=== PATIENT | female | born 2000 | race Caucasian/White ===

== ENCOUNTER → 2023-12-29 | Outpatient (CLI) | payer OTHER ==
[~2023-12-29] MED LIST: CYCL10 PO
== END | disposition home or self-care (01) ==
LOC: LAB 08:30 → LAB SHORT 08:30
PROVIDERS: Physician Assistant
DX: Z01.419 Encounter for gynecological examination (general) (routine) without abnormal findings (principal)
CPT/HCPCS: G0123

== ENCOUNTER 2024-04-05 08:53 | Day surgery (SDC) | payer OTHER ==
[~2024-04-05] VITALS: Ht 177.8 cm; Wt 55.3 kg
[~2024-04-05 08:53] MED LIST changes: +Lactated Ringer's 1,000 ML IV ONE; +propofoL 50 ML IV ONE
[2024-04-05] MEDS ORDERED: Lactated Ringer's 1,000 ML IV ONE ×2 (10:10)
[2024-04-05] MEDS ORDERED: Midazolam HCL 1 MG/ML 5MLVIAL ONE (10:35)
--- NOTE | 2024-04-05 13:09 | NUR ---
04/05/24 1309 Aliyah Villegas UPON WALKING INTO ROOM TO TAKE OVER FOR [employer] OBSERVED PT. CRYING. PT. VERBALIZES HAVING PAIN IN THE MID EPIGASTRIC AREA "BEHIND MY RIBS" PT. STATES. "TRYING TO RIP OPEN MY CHEST. I JUST WANT TO GO HOME, HOSPITALS GIVE ME ANXIETY. I"LL GO TO THE ER IF GETS WORSE." DR. MICHELE IN ROOM TALKING WITH PT. INSTRUCTED PT. TO TRY SOME HONEY WHEN SHE GOT HOME. PT. STATED AGAIN "I JUST WANT TO GO HOME." PT. WAS INSTRUCTED ALSO BY ORSC[employer]NSC THAT IT MAY BE SOME CARBON DIOXIDE IN THERE & BURPING OUT WILL HELP BUT ALSO IT WILL EVENTUALLY ABSORB. PT. THEN C/O NAUSEA, PT. BURPED UP AIR BUT NO EMESIS. PT. STATES "PAIN CAUSES ME NAUSEA ALSO." WHEN PT. WAS TALKED TO ABOUT HER TATTO'S OR FAMILY SHE WOULD STOP CRYING. PT. ALSO C/O PAIN WOULD GET WORSE WHEN SHE RAISED HER HANDS OVER HER HEAD. PT. STATED "I JUST WANT TO GO HOME & GO TO BED." OFFERED PT. TO DRINK SOME WATER, PT. REFUSED. PT. STATED "I DON'T WANT IT TO MAKE IT WORSE." ALSO INSTRUCTED PT. MAYBE TO GO HOME & DRINK SOMETHING WARM. PT. WAS TAKEN OUT BY WC TO MOM. MOM WAS INFORMED THAT BXS WERE TAKEN & WHAT THE HAD SAID.
[2024-04-05 13:11] VITALS: BP 128/92
== END 2024-04-05 12:09 | disposition home or self-care (01) ==
LOC: ORSCSDS 08:53
PROVIDERS: Internal Medicine Gastroenterology
PROC: 0DB98ZX Excision of Duodenum, Via Natural or Artificial Opening Endoscopic, Diagnostic (ICD-10-PCS; principal; 2024-04-05 10:15)
PROC: 0DJD8ZZ Inspection of Lower Intestinal Tract, Via Natural or Artificial Opening Endoscopic (ICD-10-PCS; principal; 2024-04-05 10:15)
PROC: 0DB78ZX Excision of Stomach, Pylorus, Via Natural or Artificial Opening Endoscopic, Diagnostic (ICD-10-PCS; principal; 2024-04-05 10:15)
DX: K21.9 Gastro-esophageal reflux disease without esophagitis (principal); R19.4 Change in bowel habit; R13.10 Dysphagia, unspecified; R63.4 Abnormal weight loss; R10.13 Epigastric pain; R11.2 Nausea with vomiting, unspecified; K29.70 Gastritis, unspecified, without bleeding; F43.10 Post-traumatic stress disorder, unspecified; F41.9 Anxiety disorder, unspecified
CPT/HCPCS: 88305; 88342; J2250; J2704; J7120

== ENCOUNTER 2024-04-30 03:32 | Day surgery (SDC) | payer OTHER ==
[~2024-04-30 03:32] MED LIST changes: -Lactated Ringer's 1,000 ML IV ONE; -propofoL 50 ML IV ONE
[2024-04-30] MEDS ORDERED: NS 1,000 ML IV SCH (06:55)
[2024-04-30] MEDS ORDERED: Ondansetron HCl 2 MG / ML 2ML Vial IV SCH (06:55)
[2024-04-30 10:25] VITALS: BP 99/72
[2024-04-30] MEDS ORDERED: ONDA4 PO (10:58)
[2024-04-30] MEDS ORDERED: FAMO20 PO (10:58)
== END 2024-04-30 11:42 | disposition home or self-care (01) ==
LOC: ATC 03:32
DX: O21.0 Mild hyperemesis gravidarum (principal); Z88.6 Allergy status to analgesic agent; Z91.013 Allergy to seafood; Z91.018 Allergy to other foods; Z91.040 Latex allergy status; Z87.891 Personal history of nicotine dependence
CPT/HCPCS: J2405; J7030

== ENCOUNTER 2024-05-04 01:17 | Day surgery (SDC) | payer OTHER ==
[~2024-05-04 01:17] MED LIST changes: +FAMO20 PO; +ONDA4 PO
[2024-05-04] MEDS ORDERED: NS 1,000 ML IV SCH (07:10)
[2024-05-04] MEDS ORDERED: Ondansetron HCl 2 MG / ML 2ML Vial IV SCH (07:10)
[2024-05-04 13:50] VITALS: BP 119/73
== END 2024-05-04 15:02 | disposition home or self-care (01) ==
LOC: ATC 01:17
DX: O21.0 Mild hyperemesis gravidarum (principal); Z91.040 Latex allergy status; Z88.8 Allergy status to other drugs, medicaments and biological substances; Z3A.01 Less than 8 weeks gestation of pregnancy
CPT/HCPCS: 96361; 96374; J2405; J7030

== ENCOUNTER 2024-05-11 09:14 | Day surgery (SDC) | payer OTHER ==
[~2024-05-11 09:14] MED LIST changes: +NS 1,000 ML IV SCH; +Ondansetron HCl 2 MG / ML 2ML Vial IV SCH
[2024-05-11 10:35] VITALS: BP 107/64
--- NOTE | 2024-05-11 11:58 | NUR ---
PT REQUESTED TO STOP MEDICATION SHE NEEDED TO GO GET HER CHILD FROM DAY[facility]ARE.
== END 2024-05-11 11:51 | disposition home or self-care (01) ==
LOC: ATC 09:14
DX: O21.0 Mild hyperemesis gravidarum (principal); O99.611 Diseases of the digestive system complicating pregnancy, first trimester; Z3A.00 Weeks of gestation of pregnancy not specified; K21.9 Gastro-esophageal reflux disease without esophagitis; Z79.899 Other long term (current) drug therapy; Z87.891 Personal history of nicotine dependence; Z88.6 Allergy status to analgesic agent; Z91.018 Allergy to other foods; Z91.013 Allergy to seafood; Z91.040 Latex allergy status
CPT/HCPCS: 96361; 96374; J2405; J7030

== ENCOUNTER 2024-05-16 03:53 | Day surgery (SDC) | payer OTHER ==
[~2024-05-16 03:53] MED LIST changes: -NS 1,000 ML IV SCH; -Ondansetron HCl 2 MG / ML 2ML Vial IV SCH
[2024-05-16] MEDS ORDERED: NS 1,000 ML IV SCH (06:40)
[2024-05-16] MEDS ORDERED: Ondansetron HCl 2 MG / ML 2ML Vial IV SCH (06:40)
[2024-05-16 09:55] VITALS: BP 112/69
== END 2024-05-16 11:08 | disposition home or self-care (01) ==
LOC: ATC 03:53
DX: O21.0 Mild hyperemesis gravidarum (principal); Z3A.00 Weeks of gestation of pregnancy not specified; O99.619 Diseases of the digestive system complicating pregnancy, unspecified trimester; K21.9 Gastro-esophageal reflux disease without esophagitis; Z88.6 Allergy status to analgesic agent; Z79.899 Other long term (current) drug therapy
CPT/HCPCS: 96361; 96374; J2405; J7030

== ENCOUNTER 2024-05-18 00:32 | Day surgery (SDC) | payer OTHER ==
[2024-05-18] MEDS ORDERED: Ondansetron HCl 2 MG / ML 2ML Vial IV SCH (06:55)
[2024-05-18] MEDS ORDERED: NS 1,000 ML IV SCH (06:55)
[2024-05-18 10:15] VITALS: BP 103/64
== END 2024-05-18 11:18 | disposition home or self-care (01) ==
LOC: ATC 00:32
DX: O21.0 Mild hyperemesis gravidarum (principal); Z3A.00 Weeks of gestation of pregnancy not specified; Z88.5 Allergy status to narcotic agent; Z79.899 Other long term (current) drug therapy
CPT/HCPCS: 96361; 96374; J2405; J7030

== ENCOUNTER 2024-05-21 03:41 | Day surgery (SDC) | payer OTHER ==
[2024-05-21] MEDS ORDERED: Ondansetron HCl 2 MG / ML 2ML Vial IV SCH (06:45)
[2024-05-21] MEDS ORDERED: NS 1,000 ML IV SCH (06:45)
[2024-05-21 15:20] VITALS: BP 103/64
== END 2024-05-21 16:36 | disposition home or self-care (01) ==
LOC: ATC 03:41
DX: O21.0 Mild hyperemesis gravidarum (principal); Z3A.01 Less than 8 weeks gestation of pregnancy; Z88.8 Allergy status to other drugs, medicaments and biological substances; Z91.040 Latex allergy status; Z91.013 Allergy to seafood
CPT/HCPCS: 96361; 96374; J2405; J7030

== ENCOUNTER 2024-05-25 00:53 | Day surgery (SDC) | payer OTHER ==
[2024-05-25] MEDS ORDERED: Ondansetron HCl 2 MG / ML 2ML Vial IV SCH (07:00)
[2024-05-25] MEDS ORDERED: NS 1,000 ML IV SCH (07:00)
[2024-05-25 10:16] VITALS: BP 98/66
== END 2024-05-25 11:23 | disposition home or self-care (01) ==
LOC: ATC 00:53
DX: O21.0 Mild hyperemesis gravidarum (principal); O99.612 Diseases of the digestive system complicating pregnancy, second trimester; K21.9 Gastro-esophageal reflux disease without esophagitis; Z3A.00 Weeks of gestation of pregnancy not specified; Z87.891 Personal history of nicotine dependence; Z88.5 Allergy status to narcotic agent; Z88.6 Allergy status to analgesic agent; Z91.018 Allergy to other foods; Z91.040 Latex allergy status; Z91.013 Allergy to seafood
CPT/HCPCS: 96361; 96374; J2405; J7030

== ENCOUNTER 2024-05-28 03:11 | Day surgery (SDC) | payer OTHER ==
[2024-05-28] MEDS ORDERED: Ondansetron HCl 2 MG / ML 2ML Vial IV SCH (06:45)
[2024-05-28] MEDS ORDERED: NS 1,000 ML IV SCH (06:45)
[2024-05-28 10:16] VITALS: BP 108/66
== END 2024-05-28 11:30 | disposition home or self-care (01) ==
LOC: ATC 03:11
DX: O21.0 Mild hyperemesis gravidarum (principal); Z3A.00 Weeks of gestation of pregnancy not specified; Z88.6 Allergy status to analgesic agent; Z88.8 Allergy status to other drugs, medicaments and biological substances; Z79.899 Other long term (current) drug therapy
CPT/HCPCS: 96361; 96374; J2405; J7030

== ENCOUNTER 2024-06-06 01:52 | Day surgery (SDC) | payer OTHER ==
[2024-06-06] MEDS ORDERED: Ondansetron HCl 2 MG / ML 2ML Vial IV SCH (09:00)
[2024-06-06] MEDS ORDERED: NS 1,000 ML IV SCH (09:00)
[2024-06-06 09:56] VITALS: BP 113/65
== END 2024-06-06 11:07 | disposition home or self-care (01) ==
LOC: ATC 01:52
DX: O21.0 Mild hyperemesis gravidarum (principal); O99.619 Diseases of the digestive system complicating pregnancy, unspecified trimester; K21.9 Gastro-esophageal reflux disease without esophagitis; Z87.891 Personal history of nicotine dependence; Z88.6 Allergy status to analgesic agent; Z91.018 Allergy to other foods; Z91.040 Latex allergy status
CPT/HCPCS: 96361; 96374; J2405; J7030

== ENCOUNTER 2024-06-09 02:25 | Day surgery (SDC) | payer OTHER ==
[2024-06-09] MEDS ORDERED: NS 1,000 ML IV SCH (06:40)
[2024-06-09] MEDS ORDERED: Ondansetron HCl 2 MG / ML 2ML Vial IV SCH (06:40)
[2024-06-09 10:13] VITALS: BP 114/63
== END 2024-06-09 11:25 | disposition home or self-care (01) ==
LOC: ATC 02:25
DX: O21.0 Mild hyperemesis gravidarum (principal); Z87.891 Personal history of nicotine dependence; Z88.6 Allergy status to analgesic agent; Z91.040 Latex allergy status; Z91.018 Allergy to other foods; Z91.013 Allergy to seafood
CPT/HCPCS: 96361; 96374; J2405; J7030

== ENCOUNTER 2024-06-15 00:19 | Day surgery (SDC) | payer OTHER ==
[2024-06-15] MEDS ORDERED: Ondansetron HCl 2 MG / ML 2ML Vial IV SCH (07:10)
[2024-06-15] MEDS ORDERED: NS 1,000 ML IV SCH (07:10)
[2024-06-15 10:21] VITALS: BP 119/99
== END 2024-06-15 11:26 | disposition home or self-care (01) ==
LOC: ATC 00:19
DX: O21.0 Mild hyperemesis gravidarum (principal); Z3A.00 Weeks of gestation of pregnancy not specified; Z88.6 Allergy status to analgesic agent; Z79.899 Other long term (current) drug therapy; Z87.51 Personal history of pre-term labor
CPT/HCPCS: 96361; 96374; J2405; J7030

== ENCOUNTER 2024-06-23 04:51 | Day surgery (SDC) | payer OTHER ==
[2024-06-23] MEDS ORDERED: Ondansetron HCl 2 MG / ML 2ML Vial IV SCH (07:05)
[2024-06-23] MEDS ORDERED: NS 1,000 ML IV SCH (07:05)
[2024-06-23 10:15] VITALS: BP 113/57
== END 2024-06-23 11:26 | disposition home or self-care (01) ==
LOC: ATC 04:51
DX: O21.0 Mild hyperemesis gravidarum (principal); Z3A.00 Weeks of gestation of pregnancy not specified; Z88.6 Allergy status to analgesic agent; Z79.899 Other long term (current) drug therapy
CPT/HCPCS: 96361; 96374; J2405; J7030

== ENCOUNTER → 2024-07-02 | Outpatient (CLI) | payer OTHER ==
[2024-07-03 07:41] LABS: Bacterial Vaginosis PCR Negative (NEGATIVE); Candida Group, PCR NOT DETECTED (NOT DETECT); Candida glabrata-krusei, PCR NOT DETECTED (NOT DETECT)
== END ==
LOC: LAB SHORT 18:02 → LAB 18:02
PROVIDERS: Family Medicine
DX: N89.8 Other specified noninflammatory disorders of vagina (principal)
CPT/HCPCS: 81515

== ENCOUNTER 2024-07-13 04:34 | Day surgery (SDC) | payer OTHER ==
[~2024-07-13 04:34] MED LIST changes: +NS 1,000 ML IV SCH; +Ondansetron HCl 2 MG / ML 2ML Vial IV SCH
[2024-07-13] MEDS ORDERED: Ondansetron HCl 2 MG / ML 2ML Vial IV SCH (07:05)
[2024-07-13] MEDS ORDERED: NS 1,000 ML IV SCH (07:05)
[2024-07-13 10:15] VITALS: BP 108/60
[2024-07-13] MEDS ORDERED: METO10 PO (10:51)
== END 2024-07-13 11:22 | disposition home or self-care (01) ==
LOC: ATC 04:34
DX: O21.0 Mild hyperemesis gravidarum (principal); Z3A.17 17 weeks gestation of pregnancy
CPT/HCPCS: 96361; 96374; J2405; J7030

== ENCOUNTER 2024-07-13 11:51 | Emergency (ER) | payer OTHER ==
[~2024-07-13] VITALS: Ht 177.8 cm; Wt 61.2 kg
[~2024-07-13 11:51] MED LIST changes: +METO10 PO; -NS 1,000 ML IV SCH; -Ondansetron HCl 2 MG / ML 2ML Vial IV SCH
[2024-07-13] MEDS ORDERED: Promethazine HCl 25 MG Tab PO ONE (12:05)
[2024-07-13] MEDS ORDERED: NS 1,000 ML IV SCH (12:10)
[2024-07-13] MEDS ORDERED: DiphenhydrAMINE HCl 50 MG/ML 1ML Vial IV ONE (12:35)
[2024-07-13] MEDS ORDERED: Metoclopramide HCl 5MG / ML 2ML Vial IV ONE (12:35)
[2024-07-13] MEDS ORDERED: D5W-1/2NS 1,000 ML IV SCH (12:35)
[2024-07-13 12:48] LABS: BASOPHILS ABSOLUTE AUTO 0.03 K/mm3 (0.00-0.23); BASOPHILS PERCENT AUTO 0 % (0-2); EOSINOPHILS ABSOLUTE AUTO 0.09 K/mm3 (0.00-0.68); EOSINOPHILS PERCENT AUTO 1 % (0-6); Hematocrit 36.3 % (33.0-51.0); Hemoglobin 11.9 g/dL (11.5-16.0); IMMATURE GRAN ABSOLUTE AUTO 0.08 K/mm3 (0.00-0.10); IMMATURE GRAN PERCENT AUTO 1 % (0-1); LYMPHOCYTES ABSOLUTE AUTO 0.89 K/mm3 (0.84-5.20); LYMPHOCYTES PERCENT AUTO 7 % (21-46); MONOCYTES ABSOLUTE AUTO 0.58 K/mm3 (0.16-1.47); MONOCYTES PERCENT AUTO 5 % (4-13); Mean Corpuscular HGB 30.7 pg (26.0-34.0); Mean Corpuscular HGB Conc 32.8 g/dL (31.5-36.5); Mean Corpuscular Volume 94 fL (80-100); Mean Platelet Volume 10.3 fL (9.1-12.4); NEUTROPHILS ABSOLUTE AUTO 11.12 K/mm3 (1.96-9.15); NEUTROPHILS PERCENT AUTO 87 % (41-73); Platelet Count 255 K/mm3 (150-400); RDW Coefficient Variation 13.3 % (11.7-14.2); RDW Standard Deviation 45.5 fL (35.1-46.3); Red Blood Cell Count 3.87 M/mm3 (3.80-5.20); White Blood Cell Count 12.79 K/mm3 (4.00-11.30)
[2024-07-13 13:29] LABS: Albumin, Blood 3.1 g/dL (3.4-5.0); Albumin/Globulin Ratio 0.7 (0.8-1.8); Bilirubin, Total 0.4 mg/dL (0.1-1.0); Bun/Creatinine Ratio 17.5 (12.0-20.0); Creatinine, Blood 0.46 mg/dL (0.40-1.00); Globulin, Blood 4.2 g/dL (2.2-4.0); Potassium, Blood 3.6 mmol/L (3.5-5.5); Total Protein, Blood 7.3 g/dL (6.4-8.2)
[2024-07-13 14:28] VITALS: BP 109/67
== END 2024-07-13 14:28 | disposition home or self-care (01) ==
LOC: ER 11:51
PROVIDERS: Physician Assistant
DX: O21.0 Mild hyperemesis gravidarum (principal); Z3A.20 20 weeks gestation of pregnancy; Z88.6 Allergy status to analgesic agent; Z91.040 Latex allergy status; Z91.013 Allergy to seafood; Z79.899 Other long term (current) drug therapy; Z59.89 Other problems related to housing and economic circumstances
CPT/HCPCS: 80053; 85025; 96361; 96374; 96375; 99284-25; J1200; J2765; J7042

== ENCOUNTER 2024-09-06 03:37 | Day surgery (SDC) | payer OTHER ==
[2024-09-06] MEDS ORDERED: Ondansetron HCl 2 MG / ML 2ML Vial IV SCH (07:20)
[2024-09-06] MEDS ORDERED: NS 1,000 ML IV SCH (07:20)
[2024-09-06 15:38] VITALS: BP 102/73
== END 2024-09-06 16:29 | disposition home or self-care (01) ==
LOC: ATC 03:37
DX: O21.0 Mild hyperemesis gravidarum (principal); Z88.8 Allergy status to other drugs, medicaments and biological substances; Z91.040 Latex allergy status; Z91.013 Allergy to seafood; Z91.018 Allergy to other foods; Z79.899 Other long term (current) drug therapy
CPT/HCPCS: 96360; J7030

== ENCOUNTER 2024-09-30 03:39 | Day surgery (SDC) | payer OTHER ==
[2024-09-30] MEDS ORDERED: Ondansetron HCl 2 MG / ML 2ML Vial IV SCH (06:55)
[2024-09-30] MEDS ORDERED: NS 1,000 ML IV SCH (06:55)
[2024-09-30 16:02] VITALS: BP 99/67
== END 2024-09-30 17:16 | disposition home or self-care (01) ==
LOC: ATC 03:39
DX: O21.0 Mild hyperemesis gravidarum (principal); J45.909 Unspecified asthma, uncomplicated; K21.9 Gastro-esophageal reflux disease without esophagitis; Z88.5 Allergy status to narcotic agent; Z91.040 Latex allergy status; Z91.013 Allergy to seafood; Z91.018 Allergy to other foods; Z79.899 Other long term (current) drug therapy
CPT/HCPCS: 96361; 96374; J2405; J7030

== ENCOUNTER 2024-10-06 02:50 | Day surgery (SDC) | payer OTHER ==
[2024-10-06] MEDS ORDERED: Ondansetron HCl 2 MG / ML 2ML Vial IV SCH (06:55)
[2024-10-06] MEDS ORDERED: NS 1,000 ML IV SCH (06:55)
[2024-10-06 10:12] VITALS: BP 96/64
--- NOTE | 2024-10-06 10:12 | NUR ---
PT REPORTS BEING 31 WEEKS . PT REPORTS BP HAS BEEN RUNNING LOW. WILL RECHECK BP AFTER FLUIDS. PT DOING KICK COUNTS AND REPORTS THAT FETUS IS VERY ACTIVE IN [place].
[2024-10-06 11:15] VITALS: BP 97/63
== END 2024-10-06 11:18 | disposition home or self-care (01) ==
LOC: ATC 02:50
DX: O21.0 Mild hyperemesis gravidarum (principal); Z91.040 Latex allergy status; Z88.5 Allergy status to narcotic agent; Z91.013 Allergy to seafood; Z91.018 Allergy to other foods; Z79.899 Other long term (current) drug therapy; Z87.891 Personal history of nicotine dependence
CPT/HCPCS: 96361; 96374; J2405; J7030

== ENCOUNTER 2024-10-27 07:07 | Inpatient (IN) | payer OTHER ==
[2024-10-27] VITALS (10 sets, daily range): BP systolic 101–142; BP diastolic 55–83
[~2024-10-27] VITALS: Ht 177.8 cm; Wt 46.2 kg
[2024-10-27] MEDS ORDERED: Oxytocin 10 Unit / ML Vial IM PRN (07:10)
[2024-10-27] MEDS ORDERED: OXYTOCIN/RINGER'S LACTATE 500 ML IV PRN ×2 (07:10→08:55)
[2024-10-27] MEDS ORDERED: Carboprost Tromethamine 250 MCG/ML 1ML Amp IM PRN (07:10)
[2024-10-27] MEDS ORDERED: Ondansetron HCl 2 MG / ML 2ML Vial IV PRN (07:10)
[2024-10-27] MEDS ORDERED: Methylergonovine Maleate 0.2MG / ML 1ML Amp IM PRN (07:10)
[2024-10-27] MEDS ORDERED: Penicillin G Potassium 5,000,000 UNITS in NS 250 ML IV ONE (07:15)
[2024-10-27 07:23] LABS: BASOPHILS ABSOLUTE AUTO 0.05 K/mm3 (0.00-0.23); BASOPHILS PERCENT AUTO 0 % (0-2); EOSINOPHILS ABSOLUTE AUTO 0.08 K/mm3 (0.00-0.68); EOSINOPHILS PERCENT AUTO 1 % (0-6); Hematocrit 38.5 % (33.0-51.0); Hemoglobin 12.8 g/dL (11.5-16.0); IMMATURE GRAN ABSOLUTE AUTO 0.16 K/mm3 (0.00-0.10); IMMATURE GRAN PERCENT AUTO 1 % (0-1); LYMPHOCYTES ABSOLUTE AUTO 2.93 K/mm3 (0.84-5.20); LYMPHOCYTES PERCENT AUTO 20 % (21-46); MONOCYTES ABSOLUTE AUTO 1.73 K/mm3 (0.16-1.47); MONOCYTES PERCENT AUTO 12 % (4-13); Mean Corpuscular HGB Conc 33.2 g/dL (31.5-36.5); Mean Corpuscular Volume 89 fL (80-100); NEUTROPHILS ABSOLUTE AUTO 9.71 K/mm3 (1.96-9.15); NEUTROPHILS PERCENT AUTO 66 % (41-73); NRBC ABSOLUTE 0.00 K/mm3 (0.00-0.02); NRBC Auto 0.0 /100 WBC (0.0-0.2); Platelet Count 251 K/mm3 (150-400); RDW Coefficient Variation 14.4 % (11.7-14.2); RDW Standard Deviation 44.9 fL (35.1-46.3)
[2024-10-27] MEDS ORDERED: Tranexamic Acid 100 ML IV SCH (07:25)
[2024-10-27 08:42] LABS: PCO2 Cord - Arterial 49.1 mmHg (40-50); PO2 Cord - Arterial 16.1 mmHg (16-20); pH Cord - Arterial 7.28 (7.28-7.35)
[2024-10-27 08:43] LABS: PCO2 Cord - Venous 33.8 mmHg (40-50); PO2 Cord - Venous 25.6 mmHg (28-32); pH Umbilical Cord - Venous 7.42 (7.26-7.35)
[2024-10-27] MEDS ORDERED: Benzocaine Topical Anesthetic Spray 60GM TOP PRN (08:55)
[2024-10-27] MEDS ORDERED: Witch Hazel/Glycerin PADS TOP PRN (08:55)
[2024-10-27] MEDS ORDERED: Prenatal Vit/FE Fumarate/FA 1 Tab PO SCH (09:00)
[2024-10-27] MEDS ORDERED: Penicillin G Potassium 2,500,000 UNITS in Dextrose 5% 100 ML IV SCH (11:00)
--- NOTE | 2024-10-27 11:23 | NUR ---
1115, EPDS SCREEN 15. PATIENT REPORTS THAT THIS IS HOW SHE FEELS AT BASELINE, BUT IT IS MOSTLY DUE TO HER HG AND THE FACT THAT HER SPOUSE HAS BEEN AWAY DUE TO THE . SHE ALSO REPORTS HX OF DEPRESSION, MOSTLY DUE TO BEING AWAY FROM FAMILY AND SPOUSE . PT REPORTS THAT SHE HAS TAKEN MEDICATION IN PAST FOR DEPRESSION, BUT SHE IS NOT INTERESTED AT THIS TIME BECAUSE SHE HAS FAMILY SUPPORT AND HER SPOUSE THIS TIME WHILE . SHE REPORTS THAT SHE BELIEVES SHE WILL FEEL BETTER SOON DUE TO NO LONGER HAVING HG. PT ALSO REPORTS SHE ALREADY HAS A THERAPIST SHE SEES [employer]. CARE CONSULT PLACED AND CAMP MAINTENANCE SUPERVISOR CALLED. REQUESTED URGENT VISIT DUE TO PATIENT WANTING TO DISCHARGE TO FOLLOW NB TO [facility]. LEROY LOREDO UPDATED ON EPDS, CONFIRMED PATIENT HAS AN APPT SCHEDULED WITH DUSTY ON 10/29.
--- NOTE | 2024-10-27 14:31 | NUR ---
~1230, STIFF STRAW HAT WASHER IN ROOM TO CONVERSE WITH PATIENT. SHE STATES THAT PATIENT IS SAFE TO GO HOME, HAS A GOOD SUPPORT SYSTEM AND PLAN FOR HER MENTAL HEALTH,
== END 2024-10-27 14:45 | disposition home or self-care (01) | DRG 807 ==
LOC: OBS 07:07 → BC 07:08 → OBS 07:14 → BC 07:17
PROVIDERS: Family Medicine; ADMIT Advanced Practice Midwife
PROC: 10E0XZZ Delivery of Products of Conception, External Approach (ICD-10-PCS; principal; 2024-10-27)
PROC: 10907ZC Drainage of Amniotic Fluid, Therapeutic from Products of Conception, Via Natural or Artificial Opening (ICD-10-PCS; 2024-10-27)
PROC: 4A1HXCZ Monitoring of Products of Conception, Cardiac Rate, External Approach (ICD-10-PCS; 2024-10-27)
DX: O60.14X0 Preterm labor third trimester with preterm delivery third trimester, not applicable or unspecified (principal); Z37.0 Single live birth; Z3A.34 34 weeks gestation of pregnancy; O99.62 Diseases of the digestive system complicating childbirth; K21.9 Gastro-esophageal reflux disease without esophagitis; F41.9 Anxiety disorder, unspecified; O99.344 Other mental disorders complicating childbirth; O21.2 Late vomiting of pregnancy; O66.0 Obstructed labor due to shoulder dystocia; Z87.891 Personal history of nicotine dependence; Z91.040 Latex allergy status; Z88.6 Allergy status to analgesic agent
CPT/HCPCS: 82803; 85025; 86850; 86900; 86901; A9270; J2540; J2590; J7050; J7120